=== PATIENT | female | born 1985 | race Caucasian/White ===

== ENCOUNTER 2022-09-28 05:35 | Inpatient (IN) ==
--- NOTE | 2022-09-25 11:02 | PAT Medication Instructions ---
Medication Instructions Date of Service September 25, 2022 Home Medications Medication Instructions Recorded blood-glucose meter (OneTouch #1 ea 05/03/22 Verio Reflect Meter) acetone (urine) test (Ketone Urine #50 ea 05/30/22 Test strips) blood sugar diagnostic (OneTouch #150 ea 05/30/22 Verio test strips) lancets 33 gauge (OneTouch Delica #150 ea 05/30/22 Lancets) prenat.vits,alonzo,ezn-hnlp-qivec 1 tab PO DAILY DO NOT take the morning of surgery prenat.vits,alonzo,hdu-dfuj-njdkw 1 tab PO DAILY Other Notes If you have any questions please call us at [phone] or [phone] or [phone] or [phone]
--- NOTE | 2022-09-27 10:27 | Anesthesiology Consultation ---
Date of Service September 27, 2022 Assessment & Plan (1) Encounter for pre-operative examination: Chart Review Chart Review: entry level drafter initiated Per surgeon orders- preop testing will be done day of -BSG to anesthesiologist and OB discretion (gestational DM) - Pt had two prior c-sections - initial done due to failure to progress and baby distress- had emergency - no complications. Subsequent planned - no issues with exception to spinal headache post op. - No issues with current with Per PAT appt on 09/27/22, patient denies any recent travel or large group activities. Pt is NOT vaccinated for Covid. Will leave to surgeon's discretion if preop Covid testing needed. Educated on importance of using Covid precautions one week prior to surgery Repeat 05/18/16 at [place] = Done under SAB at L3-4 with three attempts Teaching & Discussion Pre-Anesthesia Teaching/Discussion Notes: Instructed NPO after midnight before surgery,except medications with 15 cc of water. Medication instructions provided according to the [facility] guidelines. History Surgery Operation Date: 09/28/22 07:30 Proposed Procedures p Section - Son Keith MD Height/Weight Height: 5 ft 4 in Weight: 139.2 kg Allergies Allergy/AdvReac Type Severity Reaction Status Date / Time azithromycin Allergy Intermediate Hives Verified 09/27/22 08:36 adhesive Allergy Unknown HIVES Verified 09/27/22 08:36 Medications Home Medications Medication Instructions Recorded Confirmed Last Taken prenat.vits,alonzo,inh-demf-dctag 1 tab PO DAILY 02/20/22 09/27/22 Unknown blood-glucose meter (OneTouch #1 ea 05/03/22 09/27/22 Unknown Verio Reflect Meter) acetone (urine) test (Ketone Urine #50 ea 05/30/22 09/27/22 Unknown Test strips) blood sugar diagnostic (OneTouch #150 ea 05/30/22 09/27/22 Unknown Verio test strips) lancets 33 gauge (OneTouch Delica #150 ea 05/30/22 09/27/22 Unknown Lancets) Past Medical History Medical History (Updated 09/27/22 @ 11:01 by Chiara Leiva PA-C) Asthma Hx-dx in childhood- no current issues History of COVID-19 18 months ago, test at [facility], not hosp; headache, loss taste/smell>resolved History of depression Hx gestational diabetes w/current and second Blood sugars stable Obesity Polycystic ovarian syndrome Syphilis affecting Exercise / Class Metabolic Activity II 4-5 Yardwork/Stairs/Walk up hill Past Surgical History Surgical History History of esophagogastroduodenoscopy (EGD) Hx of section x2 Hx of cholecystectomy Hx of colonoscopy S/P tonsillectomy Past Anesthesia History No Hx of Anesthesia Complications and No Family Hx of Anesthesia Complications History of PONV No Hx of PONV and No Hx of Motion Sickness Social History Smoking Status: Never smoker Do You Dip or Chew Tobacco: No Hx Alcohol Use: Yes ("not while ") alcohol intake frequency: holidays/special occasions only Hx Substance Use: No substance use type: does not use Review of Systems induced reflux- stable/mild No hx of snoring when not Patient denies chest pain, shortness of breath at rest, cough, wheezing, palpitations. No hx of seizures, stroke, DC. No hx of blood clots or blood transfusions Physical Exam Vital Signs VITALS BP 116/75 P 74bpm TEMP 98.2 SP02 99% RESP 16 Constitutional no acute distress ENMT Mouth: no TMJ clicking Thyromental Distance: > or= 3.5 Finger Breadths (3.5) Mallampati Class: II Missing molars and side teeth Neck neck extension not limited Respiratory normal respiratory effort; no respiratory distress Auscultation: lungs clear to auscultation bilaterally; no wheezes Cardiovascular Rate/Rhythm: regular rate and regular rhythm Heart Sounds: no murmur Vessels: no carotid bruit Musculoskeletal Spine: no pain with cervical ROM Extremities: extremities normal to inspection Psychiatric Orientation: alert COVID-19 Risk Screen Screening Information COVID-19 Screen Date: 09/27/22 Exposure 21 Days Family/Household +COVID Last 21 Days: No Exposure 10 Days Any COVID Exposure Last 10 Days: No Symptoms Last 10 Days Experienced COVID Sx Last 10 Days: No + COVID 0-90 Days COVID + in Last 0-90 Days: No Risk Plan COVID Risk Plan: No Risk Identified COVID Risk Plan Comment: - Will get Sena test DOS due to inpatient status Patient Education COVID Preop Screening Education Complete: Yes
[~2022-09-28 05:35] MED LIST: SODIUM CHLORIDE 0.9% 250 ML IV PRN
[2022-09-28] MEDS ORDERED: LACTATED RINGER'S 1,000 ML IV SCH ×2 (05:45→09:37)
[2022-09-28] MEDS ORDERED: CITRIC ACID/SODIUM CITRATE 15 ML UDC PO SCH (06:00)
[2022-09-28 06:09] LABS: Hematocrit (blood only) 34.2 % (37.0-47.0); Hemoglobin 11.9 g/dl (12.0-16.0); Mean Corpuscular Hemoglobin 29.5 pg (25.0-34.0); Mean Corpuscular Hgb Conc 34.8 g/dL (32.0-36.0); Mean Corpuscular Volume 84.9 fL (80.0-100.0); Mean Platelet Volume 13.6 fL (9.4-12.4); Platelet Count 163 K/uL (130-400); RDW Standard Deviation 43.3 fL (36.4-46.3); Red Blood Count 4.03 M/uL (4.20-5.40); White Blood Count 8.22 K/ul (4.8-10.8)
[2022-09-28] MEDS ORDERED: MoRPHine SULFATE PF 1 MG/ML 10 ML AMP/VIAL ONE (07:26)
--- NOTE | 2022-09-28 07:37 | History & Physical Report ---
Date of Service September 28, 2022 Assessment & Plan (1) Syphilis affecting : (2) Supervision of elderly multigravida: (3) Previous delivery affecting , antepartum: (4) GDM (gestational diabetes mellitus): (5) Group B streptococcal carriage complicating : Plan Félix is 37yo at 39w1d GA. Presents for repeat LTCS with HX of C- sectionx2. 1. Fetus: Cat 1 2. Delivery: RLTCS with Hx of LTCSx 2. Consents reviewed and signed. 3. Vitals: WNL 4. PPH: High risk - type and cross 5. Syphillis infection during ; S/p treatment with ID. Will notify peds Admission and Anticipated Discharge Date Admission Date: September 28, 2022 History of Present Illness Primary Care Provider: Eliseo Bray MD Félix is 37yo at 39w1d GA. Presents for repeat LTCS with HX of C- sectionx2. complicated by Previous Section affecting x2 C/S SCHEDULED WITH MEG ON 09/28/22, SUBHA TO ASSIST GDM in prior *Monthly Growth US's @ 24wks. AMA *Weekly NST's @ 36wks Obesity (BMI 40 and higher @ beginning of ) *Growth US @ 32wks *Weekly NSTs @ 34wks *BMI 50 or greater scheduled detailed/level II anatomy at [facility] 05/17/22 @ [facility] - Normal Pap normal, +HRHPV, neg 16/18--> plan pap/hpv February 2023 Syphillis infection during *[facility] ID saw pt, treated with PCN(03/15/22), [id number] repeat RPR *Rpt testing positive @ 5 months *repeat testing 2022 or after. (per ID, pt does not need retreatment prior to delivery) *08/09/22--1:4, rpr reactive, fta-abs reactive Venous doppler-done for swelling 03/16/22 negative Anatomy scan 05/17/22 @ [facility] - 4 week f/u recommended. GBS positive-treat in labor. OB Labs: Blood Type O Positive 03/01/22 Antibody Screen NEGATIVE 03/01/22 Hemoglobin 11.8 g/dl (12.0-16.0) L 07/11/22 Hematocrit 34.4 % (34.1-44.9) 07/11/22 Mean Corpuscular Volume 83.7 fL (80.0-100.0) 03/16/22 Platelet Count 232 K/uL (130-400) 03/16/22 Rubella IgG Antibody Immune (Immune) 03/01/22 Rapid Plasma Reagin Reactive (Nonreactive) A 09/20/22 Treponema pallidum Ab (FTA-ABS) REACTIVE (NON-REACTIVE) A 09/20/22 Hepatitis B Surface Antigen. NON-REACTIVE (NON-REACTIVE) 03/01/22 Hepatitis C Antibody (EIA) NON-REACTIVE (NON-REACTIVE) 03/01/22 HIV (1&2) Ag and Ab Confirmation NON-REACTIVE (NON-REACTIVE) 03/16/22 Maternal Serum Alpha Fetoprotein 21.5 ng/mL 04/26/22 OB Optional Labs: Chlamydia trachomatis RNA NOT DETECTED (NOT DETECTED) 03/01/22 Neisseria gonorrhoeae RNA NOT DETECTED (NOT DETECTED) 03/01/22 Thyroid Stimulating Hormone (TSH) 2.179 uIu/ml (0.300-4.500) 03/16/22 Alpha Fetoprotein Triple Screen SEE NOTE 04/26/22 Labs Reviewed: neg cf/sma--[facility] low risk panorama--[facility] afp neg=-[facility] gbs pos--[facility] Allergies Allergy/AdvReac Type Severity Reaction Status Date / Time azithromycin Allergy Intermediate Hives Verified 09/27/22 08:36 adhesive Allergy Unknown HIVES Verified 09/27/22 08:36 Home Medications Medication Instructions Recorded Confirmed Type prenat.vits,alonzo,wdk-eyza-ucgvo 1 tab PO DAILY 02/20/22 09/28/22 History blood-glucose meter (OneTouch #1 ea 05/03/22 09/27/22 Rx Verio Reflect Meter) acetone (urine) test (Ketone Urine #50 ea 05/30/22 09/27/22 Rx Test strips) blood sugar diagnostic (OneTouch #150 ea 05/30/22 09/27/22 Rx Verio test strips) lancets 33 gauge (OneTouch Delica #150 ea 05/30/22 09/27/22 Rx Lancets) Patient History Medical History Asthma Hx-dx in childhood- no current issues History of COVID-19 18 months ago, test at [facility], not hosp; headache, loss taste/smell>resolved History of depression Hx gestational diabetes w/current and second Blood sugars stable Obesity Polycystic ovarian syndrome Syphilis affecting Surgical History History of esophagogastroduodenoscopy (EGD) Hx of section x2 Hx of cholecystectomy Hx of colonoscopy S/P tonsillectomy Family History (Updated 09/28/22 @ 07:14 by Jessica Singletary, QUINN) Father Diabetes Renal failure Cardiac disease Father Hypertension Mother Hypertension Cancer Social History (Updated 02/20/22 @ 17:18 by Tammy Gomez) Smoking Status: Never smoker Second Hand Exposure: Yes (growing up); Do You Dip or Chew Tobacco: No; Tobacco Cessation Education Requested by Patient: No Hx Alcohol Use: Yes ("not while ") Hx Substance Use: No Preferred Language: Khmer Communication Ability: Effective Policy Loan Calculator Required: No Beliefs That Will Affect Care: None marital status: Single marital status details: Fidel [phone]) [phone] Current Living Situation: Significant Other Current Living Situation Comment: lives with fob, 2 children, 1dog, 1cat, fob changing litter current occupational status: employed current occupation: seo marketing specialist Other Information That Helps Us Care for You: No Feels Safe at Home: Yes Safety Concerns: Feels Safe At This Time Assistive Devices: None Physical Exam Constitutional: WD/WN, vitals as above Respiratory: normal respiratory effort; no respiratory distress, no labored breathing and no retractions Cardiovascular: Rate/Rhythm: regular rate and regular rhythm Gastrointestinal (Abdomen): Inspection/Auscultation: abdomen normal to inspection Percussion/Palpation: abdomen soft; abdomen nontender, no guarding and abdomen not rigid Neurologic: grossly normal Psychiatric: A+Ox3, euthymic affect Genitourinary: + abnormal external appearance (capillary nests on vulva with bleeding, and small cuts with bleeding) Speculum/Bimanual Exam: normal appearance of the vagina and normal appearance of the cervix (no bleeding); no abnormal vaginal discharge and no vaginal bleeding OB Exam Monitor Tracing: + external FHT monitor used, + external uterine monitor used (irregular), + category I and + normal FHT variability SSE no blood in vagina at all. Results & Data ([facility]) Vital Signs (Past 12 Hours) Vital Signs Temp Pulse Resp BP Pulse Ox 09/28/22 07:18 36.6 C 20 09/28/22 05:45 36.7 C 20 09/28/22 07:17 74 132/86 09/28/22 07:16 87 100 09/28/22 06:16 36.7 C 77 145/95 H Coding Level of Care Code None Diagnoses Syphilis affecting O98.119 Supervision of elderly multigravida O09.529 Previous delivery affecting , antepartum O34.219 GDM (gestational diabetes mellitus) O24.419 Group B streptococcal carriage complicating O99.820
[2022-09-28] MEDS ORDERED: OXYTOCIN 10 UNITS/ML 10ML VIAL ONE (08:01)
[2022-09-28] MEDS ORDERED: ePHEDrine sulfate 50 MG/ML SYR ONE (08:03)
[2022-09-28] MEDS ORDERED: PHENYLEPHRINE HCL 10 MG/ML VIAL ONE (08:03)
[2022-09-28] MEDS ORDERED: fentaNYL citrate 100 MCG/2 ML VIAL ONE (08:23)
[2022-09-28] MEDS ORDERED: diphenhydrAMINE 50 MG/ML VIAL IV PRN (08:32)
[2022-09-28] MEDS ORDERED: MoRPHine SULFATE PF 1 MG/ML 10 ML AMP/VIAL INT SPINAL ONE (08:32)
[2022-09-28] MEDS ORDERED: MoRPHine SULFATE 2 MG/ML CARP IV PRN (08:32)
[2022-09-28] MEDS ORDERED: NALOXONE HCL 0.4 MG/1 ML VIAL/CARP IV PRN (08:32)
[2022-09-28] MEDS ORDERED: NALOXONE HCL 1 MG in SODIUM CHLORIDE 0.9% 1000ML 1,000 ML IV PRN (08:32)
[2022-09-28] MEDS ORDERED: HYDROmorphone INJ 0.5 MG/0.5 ML SYR IV PRN (08:32)
[2022-09-28] MEDS ORDERED: MEPERIDINE HCL 25 MG/ML CARP/VIAL IV PRN (08:32)
[2022-09-28] MEDS ORDERED: ePHEDrine sulfate 50 MG/ML AMP IV PRN (08:32)
[2022-09-28] MEDS ORDERED: NALOXONE HCL 0.08 MG in SYRINGE 1.8 ML IV PRN (08:32)
[2022-09-28] MEDS ORDERED: ONDANSETRON INJ 2 MG/ML 2 ML VIAL IV PRN (08:32)
[2022-09-28] MEDS ORDERED: LACTATED RINGER'S 500 ML IV PRN (08:32)
[2022-09-28] MEDS ORDERED: NALBUPHINE HCL INJ 10 MG/ML AMP IV PRN (08:32)
[2022-09-28] MEDS ORDERED: PROMETHAZINE HCL 12.5 MG in SODIUM CHLORIDE 0.9% 50 ML IV PRN (08:32)
[2022-09-28] MEDS ORDERED: NO NARCOTICS OR SEDATIVES SCH (08:45)
[2022-09-28] MEDS ORDERED: SODIUM CHLORIDE 0.9% 1000ML 1,000 ML IV SCH (08:45)
[2022-09-28] MEDS ORDERED: DC INTRASPINAL MORPHINE SCH (08:45)
--- NOTE | 2022-09-28 09:32 | Post Operative Brief Note ---
PG Immediate Post Op with CF Date of Surgery September 28, 2022 Pre & Post Diagnosis Operation Date: 09/28/22 07:30 Pre-Op Diagnosis: History of Section Post-Op Diagnosis: History of Section I identified the patient and participated in the time-out.: Yes Procedure Operation Date: 09/28/22 07:30 Actual Procedures p Section of live female child at 0820 - Son Keith MD Surgeon Son Keith MD Teasel Setter Dr Santamaria Estimated Blood Loss 800 Findings Consistent with Post-Op Diagnosis Specimens Specimen Description: 1. Placenta, HOLD 2. Cord Blood Drains Montez Catheter OB Procedure charges OB Charges 54878
[2022-09-28] MEDS ORDERED: BENZOCAINE 20% AER SPR 82.5 GM CAN EXT PRN (09:37)
[2022-09-28] MEDS ORDERED: MAGNESIUM HYDROXIDE SUSP 30 ML UDC PO PRN (09:37)
[2022-09-28] MEDS ORDERED: DIPHTHERIA/TETANUS/PERTUSSIS 0.5mL SYR/VIAL (Age 7+yrs) IM ONE (09:37)
[2022-09-28] MEDS ORDERED: HYDROCORTISONE ACETATE 25 MG SUPP PR PRN (09:37)
[2022-09-28] MEDS ORDERED: SENNA 8.6 MG TAB PO PRN (09:37)
[2022-09-28] MEDS: KETOROLAC 30 MG/ML VIAL IV PRN ×3 (09:44→22:37)
[2022-09-28] MEDS: OXYTOCIN 20 UNITS in LACTATED RINGER'S 1,000 ML IV SCH ×2 (10:27→18:13)
--- NOTE | 2022-09-28 10:36 | Anesthesiology Progress Note ---
Date of Service September 28, 2022 Anesthesia Post Procedure Vital Signs Vital Signs: Temp Pulse Resp BP Pulse Ox 09/28/22 10:00 16 09/28/22 10:10 14 09/28/22 09:50 16 09/28/22 09:40 20 09/28/22 09:30 36.5 C 84 20 97 09/28/22 07:18 36.6 C 20 09/28/22 05:45 36.7 C 20 09/28/22 10:32 79 99 09/28/22 10:27 79 119/57 L 98 09/28/22 10:22 83 99 09/28/22 10:17 78 136/65 100 09/28/22 10:12 83 100 09/28/22 10:07 83 100 09/28/22 10:08 80 157/68 H 09/28/22 10:02 80 100 09/28/22 09:57 74 94 09/28/22 09:58 72 144/69 H 09/28/22 09:53 85 94 09/28/22 09:52 79 97 09/28/22 09:47 96 09/28/22 09:47 84 09/28/22 09:47 77 120/58 L 09/28/22 09:42 84 97 09/28/22 09:37 94 H 119/65 98 09/28/22 09:32 97 H 100 09/28/22 09:30 90 138/68 09/28/22 09:27 94 H 100 09/28/22 07:17 74 132/86 09/28/22 07:16 87 100 09/28/22 06:16 36.7 C 77 145/95 H Pain Intensity Abdomen: Pain Intensity: 1 Transfer of Care Handoff Completed per policy Notes Mental Status: alert / awake / arousable and participated in evaluation Nausea / Vomiting: adequately controlled Pain: adequately controlled Airway Patency, RR, SpO2: stable & adequate BP & HR: stable & adequate Hydration State: stable & adequate Neuraxial Anesthesia: was administered and sensory block is resolving Anesthetic Complications: no major complications apparent and Pt Satisfied with anesthetic care
--- NOTE | 2022-09-28 11:05 | Operative Report (OR) ---
DATE OF SERVICE: 09/28/2022. PREOPERATIVE DIAGNOSES: 1. Term at 39 weeks 1 day gestational age. 2. History of x2. 3. History of syphilis during . 4. Gestational diabetes. 5. Advanced maternal age. 6. BMI greater than 50. 7. GBS positive. POSTOPERATIVE DIAGNOSES: 1. Term at 39 weeks 1 day gestational age. 2. History of x2. 3. History of syphilis during . 4. Gestational diabetes. 5. Advanced maternal age. 6. BMI greater than 50. 7. GBS positive. 8. Status post procedure. PROCEDURE: Repeat low transverse section. SURGEON: Son Keith MD. ADVERTISING OPERATIONS MANAGER: Kristi Santamaria MD ESTIMATED BLOOD LOSS: 800 mL. DRAINS: Montez catheter. FLUIDS: Continuous lactated Ringer. URINE OUTPUT: Per Montez catheter. COMPLICATIONS: None. FINDINGS: The patient is a viable female with weight and Apgars pending. There was noted to be significant abdominal adhesive disease with the obliteration of the lower uterine segment. There was also noted to be adhesion of the uterus to the anterior abdominal wall completely surrounding th e lower uterine segment. Mostly adhesions were able to be taken down during the procedure except for the lower adhesions over the bladder to the lower uterine segment. DESCRIPTION OF PROCEDURE: The patient was taken to the operating room after consents were ensured. Upon presentation, she was properly identified. Spinal anesthesia was obtained without difficulty. T he patient was then prepped and draped in normal sterile fashion. A preprocedural time out was perfo rmed, after which a Pfannenstiel incision was made with a knife. This was carried down to the underl lance fascia with the Bovie. Fascia was nicked in the midline with a knife and extended laterally wit h chase and Wells scissors. The fascia was then grasped with Kochers x2, elevated off the underlyin g rectus muscles using blunt dissection. There was noted to be fairly dense scar tissue throughout t he fascia to the muscle layers most consistent at the midline. The inferior aspect of the fascia was grasped with Kochers x2, elevated off the underlying rectus muscles using blunt dissection. The mid line was then entered bluntly and a single digit was used to feel for adhesions. There was noted to be pretty significant adhesions throughout. The abdomen was then slowly entered with both sharp and b reginaldo dissection until there was adequate room for delivery was noted. There were still some adhesion s at the time of delivery, as these were difficult to examine due to the large gravid uterus. A low transverse uterine incision was then made with a knife. The uterine cavity was then entered bluntly and placed on stretch to provide adequate room for delivery. The head of the was noted to be in cephalic position, was delivered through the hysterotomy without difficulty, body and shoulders q uickly followed. was noted to be vigorous upon delivery and a 30-second delayed cord clampin g was initiated. Cord was then double clamped and cut. taken to the waiting nursery staff. Cord blood was obtained. Attention was then turned to delivery of the placenta, which delivered int act, 3-vessel cord, gentle cord traction and gentle uterine massage. The remaining adhesions were ev aluated and gently slowly taken down and uterus was able to be exteriorized for evaluation and closur e of the hysterotomy. The hysterotomy was then reapproximated with 0 Vicryl in continuous running lo cked stitch. A second partial imbricating layer was performed. The uterus was noted to be hemostati c. The area of adhesions to the uterus to the anterior abdominal wall on the uterine layer were also sutured with 0 Vicryl in continuous running stitch. This was just superior to the hysterotomy. The posterior cul-de-sac was cleaned of clots and debris. The abdominal wall, uterus and internal struc tures were evaluated and noted to be hemostatic. The subcutaneous fascial and peritoneal layers were all examined and noted to be hemostatic. The fas juan was then reapproximated with 0 Vicryl continuous running stitch starting at both lateral apices a nd continued to the midline. The subcutaneous layers were reapproximated in 3 layers using 2-0 plain . The skin was reapproximated with 3-0 Vicryl in continuous running subcuticular stitch. An ABD pad was placed on top due to the patient's ADHESIVE ALLERGY. Needle, sponge, and instrument counts were correct at the completion of the case. Both mother and were stable in the immediate post-de livery period. Job ID: [id number]
[2022-09-28] MEDS: SIMETHICONE 80 MG CHEW PO SCH ×3 (13:01→21:39)
[2022-09-28] MEDS: DOCUSATE SODIUM 100 MG CAP PO SCH (21:39)
[2022-09-28] MEDS: NYSTATIN POWDER 15GM BTL EXT SCH (21:39)
[2022-09-29] MEDS ORDERED: ONDANSETRON INJ 2 MG/ML 2 ML VIAL IV PRN (02:12)
[2022-09-29] MEDS ORDERED: diphenhydrAMINE Capsule 25 MG CAP PO PRN (02:12)
[2022-09-29] MEDS ORDERED: diphenhydrAMINE 50 MG/ML VIAL IV PRN (02:12)
[2022-09-29] MEDS: IBUPROFEN 600 MG TAB PO PRN ×5 (05:10→23:43)
[2022-09-29] MEDS: oxyCODONE/ACETAMINOPHEN 5mg/325mg TAB PO PRN ×5 (05:11→23:07)
--- NOTE | 2022-09-29 05:49 | Obstetrical Progress Note ---
Date of Service <Gissell PulidoDO - Last Filed: 09/29/22 06:51> September 29, 2022 Assessment & Plan <Gissell PulidoDO - Last Filed: 09/29/22 06:51> (1) Status post section: Montez is out, do a trial of OOB and ambulation and then progress diet as tolerated <Kristi Santamaria MD - Last Filed: 09/29/22 06:55> (1) Status post section: Subjective <Gissell PulidoDO - Last Filed: 09/29/22 06:51> Félix is a 37 y/o female who is POD #1 following delivery at 39 1/7 weeks. She reports feeling well overall this morning. Moderate abdominal cramping, pain well managed on analgesics. Montez is out, but hasn't voiding yet. Tolerating meals overnight. Has not been OOB yet. Is passing gas, no bowel movement. Has some persistent lochia with some improvement this morning. Currently bottle feeding. Does note episode of cramping in calf, denies pain currently/erythema. Review of Systems Denies fever, chills, sweats Denies shortness of breath, difficulty breathing, chest pain, palpitations, chest pressure. Denies breast pain. Denies dysuria. Denies headache or changes in vision. Physical Exam <Gissell PulidoDO - Last Filed: 09/29/22 06:51> General: Alert, oriented. No acute distress. Cardiac: Regular rate and rhythm, no murmurs/rubs/gallops. Respiratory: Clear to auscultation bilaterally a/p, no wheezes/rales/rhonchi. No increased work of breathing. Symmetrical chest rise. No respiratory distress. Abdomen: Soft, nontender, nondistended. Uterus: Uterine fundus firm. Surgical scar clean and healing well. Lower Extremities: No lower extremity edema or swelling. No deep calf pain. Results & Data ([facility]) <Gissell PulidoDO - Last Filed: 09/29/22 06:51> Vital Signs (Past 12 Hours) Vital Signs Temp Pulse Resp BP Pulse Ox O2 Del Method 09/29/22 02:00 20 97 09/29/22 01:00 20 98 09/29/22 00:00 18 99 09/29/22 03:14 36.6 C 88 22 109/72 97 Room Air 09/28/22 23:00 20 98 09/28/22 22:00 20 97 09/28/22 21:00 20 99 09/28/22 20:00 20 98 09/28/22 19:00 18 98 09/28/22 22:45 36.7 C 69 20 116/78 98 Room Air 09/28/22 20:35 Room Air 09/28/22 20:35 36.7 C 77 20 120/77 98 Room Air 09/28/22 18:00 20 99 <Kristi Santamaria MD - Last Filed: 09/29/22 06:55> Co-Signing Physician Notes Resident Physician Supervision Note: I interviewed and examined the patient. Discussed with Dr. Pulido and agree with findings and plan as documented in the note. Any exceptions or clarifications are listed here: POD1 s/p rLTCS, doing well. VSS, exam benign and wnl. Continue routine pp care, dtv. One episode of cramping in calves that has resolved, has had SCDs on throughout night and no pain or erythema currently so low suspicion for vte. Continue to monitor Documented By: Kristi Santamaria MD Resident Activity Tracking <Gissell Pulido DO - Last Filed: 09/29/22 06:51> Resident Involvement: Resident Care Provided Care Provided: OB Delivery (post )
[2022-09-29 07:28] LABS: Basophils # (auto) 0.03 K/uL (0-0.2); Basophils % (auto) 0.3 %; Eosinophils # (auto) 0.08 K/uL (0-0.50); Eosinophils % (auto) 0.7 %; Hemoglobin 9.5 g/dl (12.0-16.0); Immature Granulocytes # (auto) 0.06 K/uL (0.01-0.20); Immature Granulocytes % (auto) 0.5 %; Lymphocytes # (auto) 0.73 K/uL (1.2-3.4); Lymphocytes % (auto) 6.1 %; Mean Corpuscular Hemoglobin 29.4 pg (25.0-34.0); Mean Corpuscular Hgb Conc 33.9 g/dL (32.0-36.0); Mean Corpuscular Volume 86.7 fL (80.0-100.0); Mean Platelet Volume 13.9 fL (9.4-12.4); Monocytes # (auto) 0.92 K/uL (0.11-0.59); Monocytes % (auto) 7.7 %; Neutrophils # (auto) 10.18 K/uL (1.40-6.50); Neutrophils % (auto) 84.7 %; Platelet Count 123 K/uL (130-400); RDW Coefficient of Variation 13.9 % (11.5-14.5); RDW Standard Deviation 43.7 fL (36.4-46.3); Red Blood Count 3.23 M/uL (4.20-5.40)
[2022-09-29] MEDS: SIMETHICONE 80 MG CHEW PO SCH ×4 (10:01→21:38)
[2022-09-29] MEDS: FERROUS SULFATE 325 MG TAB PO SCH (10:01)
[2022-09-29] MEDS: DOCUSATE SODIUM 100 MG CAP PO SCH ×2 (10:02→21:38)
[2022-09-29] MEDS: PRENATAL VITAMIN 1 TAB PO SCH (10:02)
[2022-09-29] MEDS: NYSTATIN POWDER 15GM BTL EXT SCH ×2 (10:03→21:38)
[2022-09-29] MEDS ORDERED: bisacodyL 5 MG TABEC PO SCH (20:00)
[2022-09-30] MEDS: IBUPROFEN 600 MG TAB PO PRN ×2 (05:49→11:42)
[2022-09-30] MEDS: oxyCODONE/ACETAMINOPHEN 5mg/325mg TAB PO PRN ×2 (05:49→11:42)
[2022-09-30 05:57] LABS: Hematocrit (blood only) 27.7 % (37.0-47.0); Hemoglobin 9.3 g/dl (12.0-16.0)
[2022-09-30] MEDS: PRENATAL VITAMIN 1 TAB PO SCH (08:31)
[2022-09-30] MEDS: SIMETHICONE 80 MG CHEW PO SCH ×2 (08:31→11:41)
[2022-09-30] MEDS: NYSTATIN POWDER 15GM BTL EXT SCH (08:31)
[2022-09-30] MEDS: FERROUS SULFATE 325 MG TAB PO SCH (08:31)
[2022-09-30] MEDS: DOCUSATE SODIUM 100 MG CAP PO SCH (08:31)
--- NOTE | 2022-09-30 08:54 | Obstetrical Progress Note ---
Date of Service September 30, 2022 Assessment & Plan (1) Status post section: Day 2 status post repeat . Doing well. stable for discharge Subjective Ambulation: ambulating normally Voiding: no voiding problems Passing Gas:: Yes Diet Tolerance:: regular diet Lochia:: Moderate Feeding Type:: breast feeding Physical Exam Constitutional WD/WN, vitals as above Respiratory normal respiratory effort; no respiratory distress and no labored breathing Gastrointestinal (Abdomen) Inspection/Auscultation: abdomen normal to inspection; abdomen not distended Percussion/Palpation: abdomen soft; abdomen nontender, no guarding and abdomen not rigid incision clean, dry and intact Genitourinary OB Exam Abdomen: + fundal height Fundus: + firm and + relation to umbilicus (Below); not tender or not boggy Results & Data ([facility]) Vital Signs (Past 12 Hours) Vital Signs Temp Pulse Resp BP Pulse Ox O2 Del Method 09/30/22 07:45 36.5 C 72 20 122/76 97 Room Air 09/29/22 23:11 36.6 C 79 20 118/76 98 Room Air
[2022-09-30] MEDS ORDERED: bisacodyL 10 MG SUPP PR PRN (09:14)
== END 2022-09-30 13:35 | disposition home or self-care (01) | DRG 788 ==
LOC: 4S1 05:35 → EDSTATUS 07:30 → 4E2 11:45